=== PATIENT | female | born 1980 | race African-American/Black ===

== ENCOUNTER 2018-12-03 18:52 | Emergency (ER) | payer OTHER ==
[~2018-12-03] VITALS: Ht 157.5 cm; Wt 102.1 kg
[2018-12-03] MEDS ORDERED: FLOVENT2 PUFF1 INH (18:57)
[2018-12-03 19:05] VITALS: BP 142/77
[2018-12-03] MEDS: Levalbuterol Inh UD 1.25mg/0.5ml HHN SCH ×8 (19:35→21:00)
[2018-12-03] MEDS: Ipratropium 0.02% Inh Soln 2.5ml UD HHN SCH ×8 (19:35→21:00)
[2018-12-03] MEDS ORDERED: PREDNISONE20 MG ORAL (21:04)
[2018-12-03] MEDS ORDERED: ALBUTEROL SULF8.5 GM INH (21:04)
[2018-12-03 21:08] VITALS: BP 142/77
--- NOTE | 2018-12-03 21:55 | Emergency Room Report ---
History of Present Illness General Chief Complaint: Asthma Source: Patient Present Illness HPI 38-year-old female presents ED for evaluation. Patient presents with cough and shortness of breath. History of asthma cough is dry. Patient notes body aches. Dull, 5 out of 10, nonradiating. Denies fevers or chills. Denies chest pain. Denies sick contacts or recent travel. States that she has her Flovent but not her albuterol inhaler. No other aggravating relieving factors. Denies any other associated symptoms Allergies: Coded Allergies: No Known Allergies (Unverified , 12/03/18) Patient History Past Medical History: asthma Past Surgical History: none Pertinent Family History: none Social History: Denies: smoking, alcohol use, drug use Last Menstrual Period: 10/23/18 Now: No Immunizations: UTD Reviewed Nursing Documentation: PMH: Agreed; PSxH: Agreed Nursing Documentation-PMH Past Medical History: No History, Except For Hx Asthma: Yes Review of Systems All Other Systems: negative except mentioned in HPI Physical Exam Vital Signs Date Time Temp Pulse Resp B/P (MAP) Pulse Ox O2 Delivery O2 Flow Rate FiO2 12/03/18 18:53 98.8 136 18 131/88 93 Room Air 12/03/18 19:30 21 Sp02 EP Interpretation: reviewed, normal General Appearance: no apparent distress, alert, GCS 15, non-toxic Head: normocephalic Eyes: bilateral eye normal inspection, bilateral eye PERRL ENT: normal ENT inspection Neck: normal inspection Respiratory: decreased breath sounds, wheezing Cardiovascular #1: no edema, tachycardia Gastrointestinal: normal inspection Rectal: deferred Genitourinary: no CVA tenderness Musculoskeletal: normal inspection Neurologic: alert, oriented x3, responsive, motor strength/tone normal, sensory intact, speech normal Psychiatric: normal inspection Skin: normal inspection Lymphatic: normal inspection Medical Decision Making Diagnostic Impression: Primary Impression: Asthma attack Qualified Codes: J45.901 - Unspecified asthma with (acute) exacerbation ER Course Hospital Course 38-year-old female presents to ED complaining of cough, wheezing Differential diagnoses include: URI, bronchitis, asthma/COPD, pneumonia Clinical course Patient placed on stretcher. After initial history, physical exam reveals a female in no acute distress. Bilateral TM unremarkable. No pharyngeal erythema. No tonsillar exudates. No lymphadenopathy. Mild wheezing noted on exam, no signs of respiratory distress or retractions. Patient given Prelone and Xopenex/Atrovent treatment in ED with symptoms improved. Initially tachycardic but resolved after treatment. Reassurance given. Safe for discharge. We'll prescribe inhaler, steroids. Patient has a PMD Diagnosis - asthma exacerbation Stable and discharged home with prescriptions for albuterol, prednisone. Instructed to followup with PMD. Return to ED if symptoms recur or worsen Last Vital Signs Date Time Temp Pulse Resp B/P (MAP) Pulse Ox O2 Delivery O2 Flow Rate FiO2 12/03/18 20:55 98 14 100 Room Air 21 12/03/18 19:05 98.8 142/77 Status: improved Disposition: HOME, SELF-CARE Condition: Stable Scripts Prednisone* (PREDNISONE*) 20 Mg Tablet 40 MG ORAL DAILY, #10 TAB Prov: Francisco Schrader MD 12/03/18 Albuterol Sulfate* (ALBUTEROL SULFATE MDI*) 8.5 Gm Hfa.aer.ad 2 PUFF INH Q6H, #1 EA 0 Refills Prov: Francisco Schrader MD 12/03/18 Referrals: [facility],REFERRING (PCP) Patient Instructions: Asthma, Adult Francisco Schrader MD Dec 03, 2018 21:55
== END 2018-12-03 21:08 | disposition home or self-care (01) ==
LOC: EMR 20:38
DX: J45.901 Unspecified asthma with (acute) exacerbation (principal); M79.10 Myalgia, unspecified site
CPT/HCPCS: 94640; 94664; 99283; J7512; J7644

== ENCOUNTER 2019-05-02 12:11 | Emergency (ER) | payer OTHER ==
[~2019-05-02] VITALS: Ht 160 cm; Wt 100.7 kg
[~2019-05-02 12:11] MED LIST: ALBUTEROL SULF8.5 GM INH; FLOVENT2 PUFF1 INH; PREDNISONE20 MG ORAL
--- NOTE | 2019-05-02 12:48 | Emergency Room Report ---
History of Present Illness General Chief Complaint: Lower Extremity Injury Source: Medical Record Present Illness HPI 38-year-old female presents to the emergency department complaining of localized pain, swelling, tenderness and intermittent warmth to the left ankle x1 week. Patient states that walking and standing exacerbates her symptoms she reports acute onset after slipping while at the pool 1 week ago. Patient states she is able to bear weight she denies previous injury to the extremity. She has been taking Motrin 600 mg without much relief. Denies fevers, chills, rashes, hx of joint swelling/pain, hx or RA or autoimmune disorder, hx of STI, numbness tingling or loss of sensation or gross motor movements of the extremities, incontinence of bowel or bladder. Denies CP, Palpitations, LOC, AMS , dizziness, Changes in Vision, weakness or a sudden severe headache. Allergies: Coded Allergies: No Known Allergies (Unverified , 12/03/18) Patient History Past Medical History: see triage record Past Surgical History: none Pertinent Family History: none Last Menstrual Period: 04/05/19 Reviewed Nursing Documentation: PMH: Agreed; PSxH: Agreed Nursing Documentation-PMH Past Medical History: No History, Except For Hx Asthma: Yes Review of Systems All Other Systems: negative except mentioned in HPI Physical Exam Vital Signs Date Time Temp Pulse Resp B/P (MAP) Pulse Ox O2 Delivery O2 Flow Rate FiO2 05/02/19 12:13 98.4 105 18 132/82 (99) 96 Room Air Sp02 EP Interpretation: reviewed, normal General Appearance: no apparent distress, alert, GCS 15, non-toxic Head: normocephalic, atraumatic Eyes: bilateral eye normal inspection, bilateral eye PERRL ENT: hearing grossly normal, normal voice Neck: full range of motion Respiratory: chest non-tender, lungs clear, normal breath sounds, speaking full sentences Cardiovascular #1: regular rate, rhythm, no edema - left ankle, normal capillary refill Musculoskeletal: back normal, gait/station normal, normal range of motion - compensatory-favoring the left ankle, swelling - left medial and lateral ankle, no erythema or warmth. Able to bear weight. FROM , some mild ttp. , other - no increased laxity or obvious deformities, no redness. , tender - left ankle Neurologic: alert, oriented x3, responsive, motor strength/tone normal, sensory intact, speech normal, grossly normal Psychiatric: judgement/insight normal Skin: normal color, no rash, warm/dry, well hydrated Medical Decision Making PA Attestation Dr. Valentine is my supervising Physician whom patient management has been discussed with. Diagnostic Impression: Primary Impression: Ankle pain, left Qualified Codes: M25.572 - Pain in left ankle and joints of left foot Additional Impression: Left ankle sprain Qualified Codes: S93.402A - Sprain of unspecified ligament of left ankle, initial encounter ER Course 38-year-old female presents to the emergency department complaining of localized pain, swelling, tenderness and intermittent warmth to the left ankle x1 week. Patient states that walking and standing exacerbates her symptoms she reports acute onset after slipping while at the pool 1 week ago. Patient states she is able to bear weight she denies previous injury to the extremity. She has been taking Motrin 600 mg without much relief. Denies fevers, chills, rashes, hx of joint swelling/pain, hx or RA or autoimmune disorder, hx of STI, numbness tingling or loss of sensation or gross motor movements of the extremities, incontinence of bowel or bladder. Denies CP, Palpitations, LOC, AMS , dizziness, Changes in Vision, weakness or a sudden severe headache. Ddx considered but are not limited to Fracture, dislocation, contusion, Sprain/ Strain/Spasm, Septic Joint, RA, arthritis just to name a few Vital signs: are WNL, pt. is afebrile H&PE are most consistent with musculoskeletal injury will perform imaging to r/ o fractures/dislocations. ORDERS: - X-ray Left ankle 3 views - negative for fx, Dislocation, or significant soft tissue injury, per preliminary read in ED, and signed by ROBBIE Gutierrez , my supervising physician has reviewed, and agrees with my interpretation. ED INTERVENTIONS: - Tylenol PO 650 -Giorgio wrap applied to the left ankle by test and turn up technician. Pt. remains neurovascularly intact. -Patient is provided with crutches and instructed on their use DISCHARGE: At this time pt. is stable for d/c to home. Will provide printed patient care instructions, and any necessary prescriptions. Care plan and follow up instructions have been discussed with the patient prior to discharge. Other X-Ray Diagnostic Results Other X-Ray Diagnostic Results : X-Ray ordered: Left Ankle # of Views/Limited Vs Complete: 3 View Indication: Pain EP Interpretation: Yes ROBBIE Xray: Interpretation reviewed, by supervising MD, and agrees with findings. Interpretation: no dislocation, no soft tissue swelling, no fractures Impression: No acute disease Electronically Signed by: Camryn Gutierrez PA-C Last Vital Signs Date Time Temp Pulse Resp B/P (MAP) Pulse Ox O2 Delivery O2 Flow Rate FiO2 05/02/19 12:13 98.4 105 18 132/82 (99) 96 Room Air Status: improved Disposition: HOME, SELF-CARE Condition: Stable Scripts Ibuprofen* (MOTRIN*) 600 Mg Tablet 600 MG ORAL THREE TIMES A DAY, #30 TAB 0 Refills Prov: Camryn Gutierrez 05/02/19 Diclofenac Sodium (VOLTAREN) 100 Gm Gel..gram. 1 APPLIC TP TID, #100 GM Prov: Camryn Gutierrez 05/02/19 Departure Forms: Return to Work Return to Work Date: May 05, 2019 Work Restrictions: None, No Heavy Lifting, No Prolonged Standing Other Restrictions: May return Sooner if Symptoms have resolved. Return to Full Activity: May 09, 2019 Patient Instructions: Ankle Sprain Additional Instructions: Take medications as directed. Follow up with an CONTINUOUS MINING MACHINE COAL MINER in 3-5 days, even if your symptoms have resolved. If symptoms persist MRI may be required at the discretion of your PCP or Ortho Specialist. --Please review list of primary care clinics, if you do not already have a primary care provider who can give you an Orthopedic Referral. Return sooner to ED if new symptoms occur, or current symptoms become worse. - Please note that this Emergency Department Report was dictated using [employer] stripper technology software, occasionally this can lead to erroneous entry secondary to interpretation by the dictation equipment. Camryn Gutierrez May 02, 2019 12:48
[2019-05-02] MEDS ORDERED: IBUPROFEN600 MG ORAL (13:45)
[2019-05-02] MEDS ORDERED: VOLTAREN100 G1 TP (13:45)
[2019-05-02 13:55] VITALS: BP 132/82
--- NOTE | 2019-05-02 13:56 | NUR ---
ER DISCHARGE NOTE:pain meds diven, x-ray done and adina wrap placed on left ankle Patient is cleared to be discharged per ERMD, pt is aox4, on room air, with stable vital signs. pt was given dc and prescription instructions, pt was able to verbalize understanding, pt is able to ambulate with steady gait. pt took all belongings.
--- NOTE | 2019-05-02 14:09 | Diagnostic Imaging Report ---
Indication: left ankle pain Comparison: None Findings: 3 views of the left ankle obtained. There is soft tissue swelling in the ankle and hindfoot region. No acute fracture, malalignment, periostitis, or osteochondral defects are identified. There is a mild degree of mid foot periarticular spurring due to arthrosis. Impression: Soft tissue swelling
== END 2019-05-02 14:00 | disposition home or self-care (01) ==
LOC: EMR 13:53
DX: S93.402A Sprain of unspecified ligament of left ankle, initial encounter (principal); W01.0XXA Fall on same level from slipping, tripping and stumbling without subsequent striking against object, initial encounter; Y92.9 Unspecified place or not applicable
CPT/HCPCS: 99283

== ENCOUNTER 2020-01-25 09:28 | Emergency (ER) | payer OTHER ==
[~2020-01-25] VITALS: Ht 165.1 cm; Wt 102.1 kg
[2020-01-25 09:28] VITALS: BP 136/100
[~2020-01-25 09:28] MED LIST changes: +BACTRIM DS TAB1 EAC1 ORAL; +CEPHALEXIN500 MG ORAL; +IBUPROFEN600 MG ORAL; +VOLTAREN100 G1 TP
--- NOTE | 2020-01-25 09:30 | NUR ---
ED Nurse Note: patient brought into ED from home by ambulance RA [id number] due to right ankle pain that got worse since 01/24/20, patient reports possible cellulitis and was seen by a doctor and got treatment for this.
[2020-01-25] MEDS ORDERED: Ketorolac 30mg Inj ONE (09:39)
[2020-01-25] MEDS ORDERED: Ketorolac 60mg Inj IM ONE (09:42)
[2020-01-25] MEDS: Ketorolac 60mg Inj IM ONE ×2 (09:43→09:48)
[2020-01-25] MEDS ORDERED: Cephalexin 500mg cap ORAL ONE (09:45)
[2020-01-25] MEDS ORDERED: Bactrim-DS 1 tab ORAL ONE (09:45)
--- NOTE | 2020-01-25 09:45 | Emergency Room Report ---
History of Present Illness General Chief Complaint: General Complaint Source: Patient, EMS Present Illness HPI Patient is a 39-year-old female past medical history of left ankle cellulitis who presents to the ER complaining of right ankle pain. She states that it began several days ago at rest. She denies any fever or chills. She complains of swelling. She denies any trauma. She denies any rash. She denies any chest pain or shortness of breath. She denies any abdominal pain, nausea or vomiting. Patient was brought in by EMS. She states it is painful to walk. Allergies: Coded Allergies: No Known Allergies (Unverified , 12/03/18) Patient History Past Medical History: other - cellulitis Past Surgical History: none Social History: Reports: smoking Nursing Documentation-[facility] Past Medical History: No Stated History Hx Asthma: Yes Review of Systems All Other Systems: negative except mentioned in HPI Physical Exam Vital Signs Date Time Temp Pulse Resp B/P (MAP) Pulse Ox O2 Delivery O2 Flow Rate FiO2 01/25/20 09:21 99.0 102 18 136/100 (112) 98 Room Air Sp02 EP Interpretation: reviewed, normal General Appearance: no apparent distress, alert, GCS 15, non-toxic Head: normocephalic, atraumatic Eyes: bilateral eye normal inspection, bilateral eye PERRL ENT: hearing grossly normal, normal pharynx, no angioedema, normal voice Neck: full range of motion, supple/symm/no masses Respiratory: chest non-tender, lungs clear, normal breath sounds, speaking full sentences Cardiovascular #1: regular rate, rhythm, no edema Cardiovascular #2: 2+ carotid (R), 2+ carotid (L), 2+ radial (R), 2+ radial (L) , 2+ dorsalis pedis (R), 2+ dorsalis pedis (L) Gastrointestinal: normal bowel sounds, non tender, soft, non-distended, no guarding, no rebound Rectal: deferred Genitourinary: normal inspection, no CVA tenderness Musculoskeletal: back normal, normal range of motion, calf tenderness, gait/ station normal, other - Diffuse right foot and ankle tenderness with swelling, warm to touch, no erythema, no crepitus, normal range of motion no calf tenderness or swelling Neurologic: alert, motor strength/tone normal, oriented x3, sensory intact, responsive, speech normal Psychiatric: judgement/insight normal, memory normal, mood/affect normal, no suicidal/homicidal ideation Reflexes: 3+ bicep (R), 3+ bicep (L), 3+ tricep (R), 3+ tricep (L), 3+ knee (R) , 3+ knee (L) Skin: no rash Lymphatic: no adenopathy Medical Decision Making Diagnostic Impression: Primary Impression: Cellulitis ER Course Patient's x-rays demonstrate no acute fractures. Patient started on Bactrim and Keflex for her cellulitis. After discussing risks and benefits of further diagnostics, treatment plans, as well as indications for and risks of admission , the patient is agreeable to being discharged home. I have explained that their evaluation and treatment in the emergency department today is an important step towards them achieving better health but that their evaluation today is not intended to replace further evaluation and treatment by a physician in their local clinic. I have explained that while the current findings suggest no immediate life threatening emergency they will require further evaluation and treatment by a physician of their choice in their area. They understand that it will be necessary for them to review the final reports of their ED visit with their clinic physician. We have reviewed indications for return to the Emergency Department. I have explained that additional time may need to pass and/or additional testing as an outpatient may be necessary before a definitive diagnosis can be made. They tell me they are willing to follow up as instructed within the timeframe I recommend. They appear to understand what we discussed. Additionally they understand that if they are unable to be seen by an outpatient physician they are welcome, and in fact should, return to the Emergency Department for a repeat evaluation. The patient is stable at time of discharge. Last Vital Signs Date Time Temp Pulse Resp B/P (MAP) Pulse Ox O2 Delivery O2 Flow Rate FiO2 01/25/20 09:33 102 18 Room Air 01/25/20 09:28 99.0 136/100 98 Disposition: HOME, SELF-CARE Condition: Stable Scripts Trimethoprim/Sulfamethoxazole 160/800* (BACTRIM DS TABLET*) 1 Each Tablet 1 TAB ORAL Q12H for 10 Days, #14 TAB 0 Refills Prov: Sola Stephen M.D. 01/25/20 Cephalexin* (KEFLEX*) 500 Mg Capsule 500 MG ORAL EVERY 6 HOURS for 10 Days, CAP Prov: Sola Stephen M.D. 01/25/20 Sola Stephen M.D. Jan 25, 2020 09:45
--- NOTE | 2020-01-25 09:48 | NUR ---
ED Nurse Note: before dispensing toradol, RN fully explained to the patient regarding that it's going to be given IM shot, patient gave verbal consent. however after preparing the medication, patient refused to take IM shot. 60 mg of toradol wasted with witness in the pyxis.
--- NOTE | 2020-01-25 09:59 | NUR ---
ED Nurse Note: xray at bedside.
[2020-01-25] MEDS ORDERED: CEPHALEXIN500 MG ORAL (10:43)
[2020-01-25] MEDS ORDERED: BACTRIM DS TAB1 EAC1 ORAL (10:44)
[2020-01-25 11:07] VITALS: BP 136/100
--- NOTE | 2020-01-25 11:07 | NUR ---
ER DISCHARGE NOTE: Patient is cleared to be discharged per ERMD DR STEPHEN, pt is aox4, on room air, with stable vital signs. pt was given dc and prescription instructions, pt was able to verbalize understanding, pt id band removed without complications. pt is able to ambulate with steady gait. pt took all belongings. boot provided to the patient as ordered by Dr. Stephen by [facility].
--- NOTE | 2020-01-25 11:43 | Diagnostic Imaging Report ---
Indication: Pain right ankle Comparison: 12/22/2019 Findings: 3 views of the right ankle obtained. No acute fracture, malalignment, periostitis, or osteochondral defects are identified. Osteophytes noted within the tibiotalar joint and plantar calcaneal spur There is generalized soft tissue swelling present. . Impression: No acute findings
--- NOTE | 2020-01-25 12:17 | Diagnostic Imaging Report ---
Indication: Foot Pain Comparison: None Findings: 3 views of the right foot were obtained. No acute fractures, malalignment, erosions or periostitis are identified. Impression: No acute findings.
== END 2020-01-25 11:47 | disposition home or self-care (01) ==
LOC: EDBD 09:28 → EMR 09:51
DX: L03.115 Cellulitis of right lower limb (principal); J45.909 Unspecified asthma, uncomplicated; F17.200 Nicotine dependence, unspecified, uncomplicated
CPT/HCPCS: 73610; 73630; Z7502; 99283

== ENCOUNTER 2020-04-11 10:37 | Emergency (ER) | payer OTHER ==
[~2020-04-11] VITALS: Ht 160 cm; Wt 104.3 kg
[2020-04-11 10:51] VITALS: BP 128/83
[2020-04-11] MEDS ORDERED: TRAMADOL HCL50 MG ORAL (11:16)
[2020-04-11] MEDS ORDERED: MEDROL DOSEPAK4 MG ORAL (11:16)
[2020-04-11 11:25] VITALS: BP 132/85
--- NOTE | 2020-04-11 12:38 | Emergency Room Report ---
History of Present Illness General Chief Complaint: Pain Source: Patient Present Illness HPI Patient presents with complaints of left leg discomfort reports that she feels it is tight Patient has had previous problems with her right ankle and left leg Denies any fevers or chills denies any chest pain denies any pleurisy She felt that the leg was hurting in the anterior part of the left knee and also in the anterior part of the left lower leg denies any other fall or trauma feels that the pain is worse with attempting to ambulate and stand also bearing weight Allergies: Coded Allergies: No Known Allergies (Unverified , 12/03/18) COVID-19 Screening Contact w/high risk pt: No Recent Travel to affected area: No Experienced COVID-19 symptoms?: No COVID-19 Testing performed MACHINE STONE POLISHER: No Patient History Past Medical History: see triage record Last Menstrual Period: 04/01/20 Now: No Reviewed Nursing Documentation: PMH: Agreed; PSxH: Agreed Nursing Documentation-PMH Past Medical History: No History, Except For Hx Asthma: Yes Review of Systems All Other Systems: negative except mentioned in HPI Physical Exam Vital Signs Date Time Temp Pulse Resp B/P (MAP) Pulse Ox O2 Delivery O2 Flow Rate FiO2 04/11/20 10:46 98.8 105 20 128/83 (98) 98 Room Air Sp02 EP Interpretation: reviewed, normal General Appearance: well appearing, no apparent distress Head: normocephalic, atraumatic Eyes: bilateral eye PERRL, bilateral eye EOMI ENT: hearing grossly normal, EOM grossly intact Neck: supple Respiratory: lungs clear, no respiratory distress, no retraction Cardiovascular #1: regular rate, rhythm Gastrointestinal: non tender, soft Musculoskeletal: other - Tender on palpation anterior lower patellar area also bilateral proximal tibia no obvious effusion no calf swelling no erythema, neurovascularly and sensory intact Neurologic: alert, oriented x3 Psychiatric: normal inspection Skin: no rash Lymphatic: normal inspection Medical Decision Making Diagnostic Impression: Primary Impression: Leg pain Additional Impression: arthralgia ER Course Multiple differentials including but not limited to joint sepsis, cellulitis, DVT entertained the patient's exam and presentation however is consistent with what appears to be Likely arthralgia Patient has had multiple episodes in the past with swelling to both legs she has had previous venous ultrasound and imaging Which have been negative. Findings do show some suspicion for again arthralgia as noted given the lack of any trauma and Lower suspicion on clinical exam of DVT further imaging was not performed on this visit patient is encouraged to follow closely with primary physician and will return with any changes or concerns Last Vital Signs Date Time Temp Pulse Resp B/P (MAP) Pulse Ox O2 Delivery O2 Flow Rate FiO2 04/11/20 11:25 98.5 81 20 132/85 97 Room Air Status: improved Disposition: HOME, SELF-CARE Condition: Stable Scripts Methylprednisolone (Methylprednisolone*) 4MG Dspk 4 MG ORAL DIRECTED for 6 Days, #21 EA 0 Refills Day 1: Two tablets before breakfast, one after lunch, one after dinner, and two at bedtime. If started late in the day, take all six tablets at once or divide into two or three doses, unless otherwise directed by prescriber. Day 2: One tablet before breakfast, one after lunch, one after dinner, and two at bedtime Day 3: One tablet before breakfast, one after lunch, one after dinner, and one at bedtime Day 4: One tablet before breakfast, one after lunch, and one at bedtime Day 5: One tablet before breakfast and one at bedtime Day 6: One tablet before breakfast Prov: Gianluca Fu DO 04/11/20 Tramadol Hcl* (ULTRAM*) 50 Mg Tablet 50 MG ORAL Q6H PRN for For Pain, #20 TAB 0 Refills Prov: Gianluca Fu DO 04/11/20 Referrals: NOT CHOSEN [facility]/,REFERRING (PCP) Hector Balderas MD Patient Instructions: Joint Pain Additional Instructions: Patient is provided with the discharge instructions notified to follow up with primary doctor in the next 2-3 days otherwise return to the er with any worsening symptoms. Please note that this report is being documented using [employer] technology. This can lead to erroneous entry secondary to incorrect interpretation by the dictating instrument. Gianluca Fu DO April 11, 2020 12:38
== END 2020-04-11 11:25 | disposition home or self-care (01) ==
LOC: EMR 10:53
DX: M79.605 Pain in left leg (principal)
CPT/HCPCS: 99282

== ENCOUNTER 2020-09-28 18:20 | Emergency (ER) | payer OTHER ==
[~2020-09-28] VITALS: Ht 157.5 cm; Wt 101.2 kg
[~2020-09-28 18:20] MED LIST changes: +MEDROL DOSEPAK4 MG ORAL; +TRAMADOL HCL50 MG ORAL
--- NOTE | 2020-09-28 18:40 | NUR ---
ED Nurse Note: Patient walked in to ER c/o left ribs pain since yesterday, no injury reported. AAO x4, VSS at this time.
[2020-09-28 18:47] VITALS: BP 123/81
--- NOTE | 2020-09-28 18:48 | NUR ---
ED Nurse Note: X RAY AT BED SIDE
--- NOTE | 2020-09-28 19:05 | Diagnostic Imaging Report ---
EXAM: XR Chest, 1 View CLINICAL HISTORY: PAIN TECHNIQUE: Frontal view of the chest. COMPARISON: No relevant prior studies available. FINDINGS: Lungs: Question airspace opacities within the lower lungs which may be inflammatory or infectious. Findings are limited secondary to overlying soft tissue densities. Pleural space: Unremarkable. Heart: Unremarkable. Mediastinum: Unremarkable. Bones/joints: Unremarkable. IMPRESSION: Question airspace opacities within the lower lungs which may be inflammatory or infectious. Findings are limited secondary to overlying soft tissue densities.
[2020-09-28] MEDS ORDERED: Methocarbamol 500mg tab ORAL ONE ×2 (19:23→19:45)
--- NOTE | 2020-09-28 19:40 | Emergency Room Report ---
History of Present Illness General Chief Complaint: Pain Source: Patient Present Illness HPI 40 YO female w. hx of asthma presents to the ED c/o 09/01 in severity left sided rib and back pain Since yesterday. Pt. denies trauma or fall. Fevers or chills. She reports coughing exacerbates her pain. She states she does not cough very often. She denies shortness of breath or wheezing. She denies pain with breathi ng. She denies feeling SOB. She reports difficulty sleeping as she is unable to lay on that side. Patient denies rashes. She states she is not sure if she ever had the chickenpox when she was younger. She does report that her father has had shingles. Patient denies feeling fatigue, sore throat or recent illness. She denies increase in her asthma. Denies palpitations, smoking, or recent travel. No other aggravating or relieving factors at this time. She reports taking ibu and using OTC patches with no relief. Allergies: Coded Allergies: No Known Allergies (Unverified , 12/03/18) COVID-19 Screening Contact w/high risk pt: No Recent Travel to affected area: No Experienced COVID-19 symptoms?: No COVID-19 Testing performed FIN[employer]CIAL SERVICES PROFESSIONAL: No Patient History Past Medical History: see triage record Past Surgical History: none Pertinent Family History: none Now: No Reviewed Nursing Documentation: PMH: Agreed; PSxH: Agreed Nursing Documentation-PMH Past Medical History: No History, Except For Hx Asthma: Yes Review of Systems All Other Systems: negative except mentioned in HPI Physical Exam Vital Signs Date Time Temp Pulse Resp B/P (MAP) Pulse Ox O2 Delivery O2 Flow Rate FiO2 09/28/20 18:24 97.5 97 18 123/81 (95) 98 Room Air Sp02 EP Interpretation: reviewed, normal General Appearance: no apparent distress, alert, GCS 15, non-toxic Head: normocephalic, atraumatic Eyes: bilateral eye normal inspection, bilateral eye PERRL ENT: hearing grossly normal, normal voice Neck: full range of motion Respiratory: chest non-tender, lungs clear, normal breath sounds, no respiratory distress, no accessory muscle use, no wheezing, speaking full sentences, other - Patient has moderate palpable tenderness in the soft tissues as well as muscle of the lateral aspect of the back on the left side is well as rib area. No visible rash, erythema or warmth. Cardiovascular #1: regular rate, rhythm, no edema, normal capillary refill Gastrointestinal: normal bowel sounds, non tender, soft, non-distended, no guarding Rectal: deferred Genitourinary: normal inspection, no CVA tenderness Musculoskeletal: back normal, normal range of motion, gait/station normal, non- tender Neurologic: alert, motor strength/tone normal, oriented x3, sensory intact, responsive, speech normal Psychiatric: judgement/insight normal Skin: no rash Lymphatic: no adenopathy Medical Decision Making PA Attestation Dr. Piper is my supervising Physician whom patient management has been discussed with. Diagnostic Impression: Primary Impression: Back pain Qualified Codes: M54.9 - Dorsalgia, unspecified Additional Impressions: Rib pain on left side Rib tenderness ER Course 40 YO female w. hx of asthma presents to the ED c/o 09/01 in severity left sided rib and back pain Since yesterday. Pt. denies trauma or fall. Fevers or chills. She reports coughing exacerbates her pain. She states she does not cough very often. She denies shortness of breath or wheezing. She denies pain with breathing. She denies feeling SOB. She reports difficulty sleeping as she is unable to lay on that side. Patient denies rashes. She states she is not sure if she ever had the chickenpox when she was younger. She does report that her father has had shingles. Patient denies feeling fatigue, sore throat or recent illness. She denies increase in her asthma. Denies palpitations, smoking, or recent travel. No other aggravating or relieving factors at this time. She reports taking ibu and using OTC patches with no relief. Ddx considered but are not limited to contusion, shingles, cellulitis, pneumonia,URI, rib fracture, pneumonitis, asthma exacerbation, cardiac cause just to name a few Vital signs: are WNL, pt. is afebrile H&PE are most consistent with soft tissue injury. Patient has moderate palpable tenderness in the soft tissues as well as muscle of the lateral aspect of the back on the left side is well as rib area. No visible rash, erythema or warmth. Pt. without cardiac RF. ORDERS: -CXR: low lung volume. ED INTERVENTIONS: -Robaxin 1g PO -I do not identify an emergent condition at this time. With current pres entation, pt. is stable for close outpatient follow up and conservative treatment. D/w pt. to return promptly to ED with worsening or new symptoms.- Pt. verbalizes' understanding and agreement with proposed treatment plan. DISCHARGE: At this time pt. is stable for d/c to home. Will provide printed patient care instructions, and any necessary prescriptions. Care plan and follow up instructions have been discussed with the patient prior to discharge. Chest X-Ray Diagnostic Results Chest X-Ray Diagnostic Results : Chest X-Ray Ordered: Yes # of Views/Limited/Complete: 1 View Indication: Chest Pain EP Interpretation: Yes ROBBIE Xray: Interpretation reviewed, by supervising MD, and agrees with findings. Interpretation: no consolidation, no effusion, no pneumothorax, no acute cardiopulmonary disease, other - some mild interstitial infiltrates Impression: Other Electronically Signed by: Camryn Gutierrez PA-C Last Vital Signs Date Time Temp Pulse Resp B/P (MAP) Pulse Ox O2 Delivery O2 Flow Rate FiO2 09/28/20 18:47 97.5 18 123/81 98 Room Air 09/28/20 18:24 97 Status: improved Disposition: HOME, SELF-CARE Condition: Stable Patient Instructions: Muscle Pain, Adult, Nonspecific Chest Pain, [id number] Additional Instructions: Take medications as directed. Do not drink alcohol, drive, or operate heavy machinery while taking Robaxin ( Muscle Relaxer/pain medication) as this may cause drowsiness. Follow up with a Primary Care Provider in 3-5 days, even if your symptoms have resolved. --Please review list of primary care clinics, if you do not already have a primary care provider Return sooner to ED if new symptoms occur, or current symptoms become worse. Do not drink alcohol, drive, or operate heavy machinery while taking Robaxin ( Muscle Relaxer/pain medication) as this may cause drowsiness. - Please note that this Emergency Department Report was dictated using [employer] executive [employer] technology software, occasionally this can lead to erroneous entry secondary to interpretation by the dictation equipment. Camryn Gutierrez Sep 28, 2020 19:40
[2020-09-28] MEDS ORDERED: LIDODERM700 M1 TOPIC (19:42)
[2020-09-28] MEDS ORDERED: ROBAXIN-750750 MG PO (19:42)
[2020-09-28] MEDS ORDERED: IBUPROFEN600 M1 ORAL (19:42)
[2020-09-28 19:56] VITALS: BP 128/74
--- NOTE | 2020-09-28 19:56 | NUR ---
ED Nurse Note: Pt cleared by ERPA for discharge. DC instructions was given and explained to pt and verbalized understanding of teachings. prescription sent to the pharmacy of choice. All medical deviecs such as ID band removed. Pt is AAO x4, ambulatory and left with all personal belongings. P/u by family member.
== END 2020-09-28 19:56 | disposition home or self-care (01) ==
LOC: EMR 18:45
DX: M54.9 Dorsalgia, unspecified (principal); R07.81 Pleurodynia
CPT/HCPCS: 71045; Z7502; 99283